=== PATIENT | male | born 1995 | race Caucasian/White ===

== ENCOUNTER 2016-04-17 18:31 | Emergency (ER) | payer OTHER ==
[~2016-04-17] VITALS: Ht 185.4 cm; Wt 81.8 kg
[2016-04-17 18:42] VITALS: BP 110/64; PULSE 124; RESP 18; O2SAT 98
[2016-04-17] MEDS ORDERED: 0.9% Sodium Chloride 1,000 ML IV ONE ×2 (19:36→21:15)
[2016-04-17] MEDS ORDERED: Ondansetron 2 mg/mL 2 mL Inj IVPUSH ONE (19:40)
[2016-04-17] MEDS: HYDROmorphone 0.5 mg/0.5 mL iSecure Syringe IVPUSH PRN ×2 (20:29→20:55)
[2016-04-17 20:35] LABS: BASOPHILS % (AUTO) 0.3 % (0-3); EOSINOPHILS % (AUTO) 0.1 % (0-5); MONOCYTES % (AUTO) 11.5 % (4-12); Mean Corpuscular Volume 89.9 fL (81-100); NEUTROPHILS % (AUTO) 82.5 % (40-74); Platelet Count 170 bil/L (150-400)
[2016-04-17 21:12] LABS: Magnesium 1.7 mg/dL (1.6-2.6)
[2016-04-17 21:50] VITALS: BP 123/61; PULSE 94; O2SAT 96
--- NOTE | 2016-04-17 22:23 | ED.REPORT ---
HPI-Abd Pain M Under 39 Date of Service Apr 17, 2016 ED Provider: Galdino Mary MD History of Present Illness: Mr. iDnesh Rebolledo is a 20 year old gentleman with a benign past medical history whoo presented to [facility] emergency Department with fever, tachycarida and unrelenting nausea and vomiting with epigastric pain that is well controlled with medications. He reports a night of drinking and the next day 50x episodes of vomiting. He reports epigastric pain and sternal pain as sharp in nature and nonradiating, most to 10 and currently 3 out of 10. He denies hematemesis or hematochezia, dizziness, chest pain, shortness of breath, constipation, diarrhea. Nursing Notes Stated Complaint: VOMITTING Chief Complaint: Male Abdominal Pain Nursing Notes Reviewed: Yes Allergies: Coded Allergies: No Known Allergies (Unverified , 04/17/16) General Time Seen by MD: 19:38 Chief Complaint Abdominal pain, Nausea, Vomiting moderate Review of Systems Review of Systems Note: A comprehensive review of systems was conducted with the patient and found to be negative except as above in the History of Present Illness. Physical Exam Physical Exam Notes: General: Young gentleman lying in bed in no acute distress, well-developed, well-nourished, appropriately interactive HEENT: Normocephalic, atraumatic. External ears without defect. Pupils equal, round, and reactive to light and accommodation. Anicteric sclerae, moist conjunctivae, and no lid lag. Oropharynx free of erythema and cobble stoning with moist mucosa. Neck: Supple with full range of motion. No jugular venous distension. No bruits. No lymphadenopathy or thyromegaly. Cardiovascular: Tachycardic rate and regular rhythm with no murmurs, rubs, or gallops appreciated Pulmonary: Clear to auscultation bilaterally with no crackles, wheezes, or rhonchi. Normal respiratory effort with no use of accessory muscles. Abdomen: Bowel tones present. Soft, Very mildly tender to palpation. , nondistended. No hepatosplenomegaly or masses appreciated. Extremities: No clubbing, cyanosis, edema, or lymphadenopathy appreciated. Skin: Normal temperature, turgor, and texture; no rash, ulcers, or subcutaneous nodules appreciated. Neurological: Cranial nerves grossly intact. Normal muscle strength, tone, and bulk. Reflexes, coordination, and sensory function within normal limits. No known gait impairment. Psychiatric: Normal mood and affect. Alert and oriented to person, place, and time. Initial Vital Signs Vital Signs (First) Date Time Temp Pulse Resp B/P Pulse Ox O2 Delivery O2 Flow Rate FiO2 04/17/16 18:42 38.2 124 18 110/64 98 Room Air Interpretation & Diagnostics Lab Results Interpretation Result Diagram: 04/17/16202404/17/162024 Test 04/17/16 19:33 04/17/16 20:25 Hold Urine Received (Received) White Blood Count 7.9th/mm3 (3.8-10.1) Red Blood Count 5.54mil/mm3 (4.40-5.80) Hemoglobin 17.2g/dL (13.8-17.2) Hematocrit 49.8% (41.0-50.0) Mean Corpuscular Volume 89.9fL (81-100) Mean Corpuscular Hemoglobin 31.0pg (27.0-35.0) Mean Corpuscular Hemoglobin Concent 34.5% (32.0-37.0) Red Cell Distribution Width 12.1% (12.3-15.4) Platelet Count 170bil/L (150-400) Neutrophils (%) (Auto) 82.5% (40-74) Lymphocytes (%) (Auto) 5.5% (14-46) Monocytes (%) (Auto) 11.5% (4-12) Eosinophils (%) (Auto) 0.1% (0-5) Basophils (%) (Auto) 0.3% (0-3) Sodium Level 140mEq/L (134-144) Potassium Level 3.4mEq/L (3.5-5.2) Chloride Level 98mEq/L (97-108) Carbon Dioxide Level 24mmol/L (18-29) Blood Urea Nitrogen 17mg/dL (6-20) Creatinine 0.78mg/dL (0.76-1.27) Estimat Glomerular Filtration Rate 134mL/min (>59) Glucose Level 108mg/dL (60-99) Calcium Level 9.2mg/dL (8.5-10.1) Magnesium Level 1.7mg/dL (1.6-2.6) Total Bilirubin 0.9mg/dL (0.0-1.2) Aspartate Amino Transf (AST/SGOT) 23U/L (0-50) Alanine Aminotransferase (ALT/SGPT) 15U/L (0-44) Alkaline Phosphatase 56U/L (25-150) Total Protein 8.2g/dL (6.4-8.4) Albumin 5.0g/dL (3.4-5.0) Lipase 12U/L (13-60) Hold Chin Top Tube Received (Received) Re-Eval/Medical Decision Med Decision/Clinical Course Mr. Dinesh Rebolledo presented with fever, tachycarida and unrelenting nausea and vomiting with epigastric pain that is well controlled with medications. He reports a night of drinking and the next day 50x episodes of vomiting. He most likely has alcoholic gastritis. Lipase is negative so rules out pancreatitis. I believe Ida-Bauman tear is very unlikely since he reports no hematemesis or hematochezia. His white count was also negative. Patient has been treated with 2 L normal saline, 1.5 mg IV Dilaudid, and Zofran with near complete resolution of symptoms. Patient Discharge & Departure Shift Change Sign-Out Patient Care Transferred: Yes Discussed Complaint(s): Yes Laboratory Evaluation: Lab evaluation discussed Response to Therapy: Improved Primary Impression: Epigastric pain Additional Impressions: Generalized abdominal pain Alcohol abuse Fever Fever type: unspecified Qualified Code: R50.9 - Fever, unspecified Disposition: Home Discharge Condition All VS Reviewed: Yes Condition: Stable Patient Instructions: Gastritis (ED) Additional Instructions: During you visit to [facility] Emergency Department we obtained blood work for infectious markers, hemoglobin levels, electrolytes, and lipase levels. All your lab values were within normal limits. You were febrile and tachycardic, which means he temperature was elevated your heart rate was fast. After 2 L of normal saline by IV your heart rate came down to acceptable levels. Your other vital signs were normal upon discharge. We will send you home with - A short supply of pain medications for home. - Dissolvable medications for nausea and vomiting. Do not hesitate to call emergency services or your primary care physician if you experience any of the following. -High unrelenting fevers. - Worsening abdominal pain. - Uncontrolled vomiting. - Severe hypertension. - Syncope or loss of consciousness. - Chest pain or severe shortness of breath. Follow up with your primary care physician in 1-2 weeks time following your emergency department visit for medication checks and general well-being. Referrals: Jose Hagan MD (PCP) EDSupervising Provider for APC: Galdino Mary MD Attending Statement Attending attestation: I saw this patient in conjunction with the above named resident. I was present for all arriaza portions of the history taking and physical examination. I agree with the workup, evaluation, treatment and disposition. Serial abdominal examinations were benign. The patient was without leukocytosis. Overall presentation was suggestive of alcoholic gastritis however he was febrile upon arrival. I strongly considered acute surgical intra-abdominal processes and acute appendicitis however his examination was inconsistent with such etiologies. It may be that he has a concurrent flulike illness as well. At this time I see no indication to obtain abdominal imaging studies given his benign serial abdominal examinations. He is provided with follow-up and return precautions including those for appendicitis and was discharged in good condition. Galdino Mary MD copies to: Jose Hagan MD, COREY P DO Apr 17, 2016 21:40 Galdino Mary MD Apr 17, 2016 23:46
[2016-04-17] MEDS ORDERED: _Ondansetron ODT 4 mg Tablet PO PRN (22:25)
[2016-04-17] MEDS ORDERED: _oxyCODONE/APAP 5-325 mg Tablet PO PRN (22:25)
== END 2016-04-17 22:59 | disposition home or self-care (01) ==
LOC: SED 18:31
DX: R10.13 Epigastric pain (principal); R10.84 Generalized abdominal pain; F10.10 Alcohol abuse, uncomplicated; R50.9 Fever, unspecified; R11.2 Nausea with vomiting, unspecified; R00.0 Tachycardia, unspecified
CPT/HCPCS: 36415; 80053; 83690; 83735; 85025; 96361; 96374; 96375; 99284; J1170; J2405; J7030